=== PATIENT | male | born 1950 | race Caucasian/White ===

== ENCOUNTER 2018-06-19 08:58 | Day surgery (SDC) | payer MEDICARE ==
[2018-06-18 11:41] VITALS: BMI 25.7
[2018-06-19] MEDS ORDERED: Levofloxacin 500 mg/D5W 100 ml Premix Bag ONE (09:34)
[2018-06-19 09:50] LABS: #Basophils 0.1 thou/uL (0.0-0.2); #Eosinphils 0.3 thou/uL (0.0-0.7); #Lymphocytes 1.1 thou/uL (1.20-3.40); #Monocytes 0.5 thou/uL (0.11-0.59); %Basophils 1.2 % (0.0-1.0); %Eosinophils 4.9 % (0.0-10.0); %Lymphocytes 18.9 % (21.0-51.0); %Monocytes 8.2 % (0.0-10.0); %Neutrophils 66.8 % (42.0-75.0); Hemoglobin 14.8 g/dL (14.0-18.0); Mean Corpuscular HGB CONC 32.9 g/dL (32.0-36.0); Mean Corpuscular Hemoglobin 30.8 pg (27.0-31.0); Mean Corpuscular Volume 93.4 fL (78.0-98.0); Mean Platelet Volume 7.9 fL (7.4-10.4); Platelet Count 206 thou/uL (130-400)
[2018-06-19 09:56] LABS: Prothrombin Time 13.6 SEC (12.0-14.7)
[2018-06-19 09:57] LABS: PTT 29.2 SEC (22.9-36.1)
[2018-06-19 10:08] LABS: Anion Gap 12 mmol/L (10-20); BUN (Urea Nitrogen) 18 mg/dL (8.4-25.7); Calc. Creatinine Clearance 83 mL/min (70-130); Carbon Dioxide 28 mmol/L (23-31); Chloride 108 mmol/L (98-107); Estimated GFR-MDRD 67; Glucose 93 mg/dL (80-115); Potassium 4.8 mmol/L (3.5-5.1); Sodium 143 mmol/L (136-145)
[2018-06-19] MEDS ORDERED: Fentanyl 100 MCG/2 ML VIAL ONE (11:19)
[2018-06-19] MEDS ORDERED: Lidocaine 1% PF 5 ML VIAL ONE (12:21)
[2018-06-19] MEDS ORDERED: Ondansetron PF 4 MG/2 ML Vial ONE (12:21)
[2018-06-19] MEDS ORDERED: Glycopyrrolate 0.2 MG/ML 5 ML SYRINGE ONE (12:21)
[2018-06-19] MEDS ORDERED: Ketorolac Tromethamine 30 MG/ML VIAL ONE (12:21)
[2018-06-19] MEDS ORDERED: PROPOFOL 200 MG/20 ML VIAL ONE (12:21)
[2018-06-19] MEDS ORDERED: ePHEDrine/0.9% NaCl/PF SYRINGE 50 mg/10 ml ONE (12:21)
[2018-06-19] MEDS ORDERED: Rocuronium Bromide 10 MG/ML (10ML VIAL) ONE (12:21)
[2018-06-19] MEDS ORDERED: PHENYLEPHRINE-NS 100 MCG/ML 10 ML SYRINGE ONE (12:21)
[2018-06-19] MEDS ORDERED: Phenazopyridine HCl 97.5 MG TABLET ONE (13:20)
[2018-06-19] MEDS ORDERED: Oxybutynin 5 MG TAB ONE (13:21)
--- NOTE | 2018-06-19 19:21 | OP ---
DATE OF PROCEDURE: 06/19/2018 SERVICE: Urology. PREOPERATIVE DIAGNOSIS: Right renal stone. POSTOPERATIVE DIAGNOSIS: Right renal stone. PROCEDURES PERFORMED: Right ureteroscopy, laser lithotripsy, basket extraction of stones and placement of a 6 x 26 double-J stent. INDICATIONS FOR PROCEDURE: Mr. Suresh is a 68-year-old white male, who presented to me with bilateral renal stones. He has a greater amount of stone burden on the right. We elected to go forward with the right ureteroscopy and laser lithotripsy with removal of all stones on that side. We will defer the left side to a different date. Risks and benefits of surgery have been discussed and he has agreed to proceed forward. DESCRIPTION OF PROCEDURE: After identification of armband and verification of consent, the patient was brought back to the operating room, where he underwent general anesthesia with endotracheal intubation. He was then placed in dorsal lithotomy position and prepped and draped in usual sterile fashion. After appropriate time-out, a lubricated 22-[place] rigid cystoscope was introduced per urethra into the bladder and attention turned towards the right ureteral orifice. This was cannulated with a 0.035 Sensor wire up to the level of renal pelvis. The cystoscope was then removed and a dual-lumen catheter was advanced over the Sensor wire up to the level of the proximal ureter. An Amplatz Super Stiff wire was then placed through the second lumen of the dual lumen up to the level of renal pelvis, then dual-lumen removed. An 11/13 x 46 cm ureteral access sheath was then advanced over the Super Stiff wire up to the level of the proximal ureter. Inner cannula and Super Stiff wire were then removed leaving the outer sheath and Sensor wire in place as a safety wire. A flexible digital ureteroscope was then used to cannulate through the ureteral access sheath up into the renal pelvis. There were multiple stones found in almost every calyx. The larger stones were broken up with a 273 micron laser fiber and then all pieces that were over 1 mm in size were basketed out. Upon completion, all the stones that were over a millimeter were gone. There was some very small crumbs left within some of the calyces, which were too small to basket despite multiple attempts to render him completely stone free. These stone should pass without much difficulty as they were extremely small, so small that they cannot even be picked up in the basket. Pull-back ureteroscopy was employed and there were no additional stones found in the ureter. Satisfied that the patient was essentially stone free on this side. The ureteroscope and sheath were then removed and the cystoscope was then backloaded over the Sensor wire back into the bladder. A 6 x 26 double-J stent was advanced over the Sensor wire up to the level of the pelvis. The wire was removed leaving a good curl in renal pelvis and a good curl in the bladder. The bladder was then emptied and cystoscope removed. The patient was then awakened, taken to PACU for recovery in stable condition. COMPLICATIONS: None. ESTIMATED BLOOD LOSS: Minimal. RETAINED TUBES AND DRAINS: 6 x 26 double-J stent on the right. SPECIMEN: Stone for stone analysis. DISPOSITION: The patient will be discharged home and follow up with me in 1 week for cysto and stent removal. Job ID: [id number]
[2018-06-24 08:20] LABS: CA Oxalate Dihydrate 10 % (.); CA Oxalate Monohydrate 80 % (.); CA Phosphate 10 % (.); Color Brown (.)
== END 2018-06-19 16:38 | disposition home or self-care (01) ==
LOC: SDC 08:58
PROVIDERS: ATTEND Urology
PROC: 0TC08ZZ Extirpation of Matter from Right Kidney, Via Natural or Artificial Opening Endoscopic (ICD-10-PCS; principal; 2018-06-19)
PROC: 0T768DZ Dilation of Right Ureter with Intraluminal Device, Via Natural or Artificial Opening Endoscopic (ICD-10-PCS; 2018-06-19)
DX: N20.0 Calculus of kidney (principal); M06.9 Rheumatoid arthritis, unspecified; E29.1 Testicular hypofunction; Z79.899 Other long term (current) drug therapy; Z98.890 Other specified postprocedural states
CPT/HCPCS: 52356; 76000; 80048; 82365; 84403; 85025; 85610; 85730; 88300; 93005; C1769; 36415; 93010; J1885; J1956; J2001; J2405; J2704; J3010

== ENCOUNTER 2020-05-24 09:47 | Outpatient (CLI) | payer MEDICARE ==
--- NOTE | 2020-05-24 14:53 | CT ---
CT ABDOMEN AND PELVIS WITHOUT IV CONTRAST: 05/24/20 INDICATIONS: Renal stones. History of prior lithotripsy. Right lower quadrant pain. No comparison. FINDINGS: Lung bases clear. Liver, spleen and pancreas unremarkable. Stomach and duodenum unremarkable. Review of the kidneys show numerous small nonobstructing calculi throughout the upper collecting structures of both kidneys. These numerous calcifications are too numerous to count and measure up to 3 to 4 mm in size. No significant hydronephrosis. There is slight fullness to the right ureter. There is a 3 mm calculus in the lower right ureter which does not appear to be producing significant obstructive change. 1 cm cortical cyst mid right kidney. Urinary bladder is mildly distended. Mild urinary bladder wall thickening and mild prostatic hypertro phy. Small bowel loops normal caliber. Colon unremarkable. Aorta is mildly ectatic measuring up to 2. 3 cm in diameter in the distal abdominal aorta. Osseous structures show degenerative and postoperative changes in the spine. Degenerative changes at both hips. IMPRESSION: 1. Numerous nonobstructing calculi in the upper collecting structures of both kidneys. 2. There is a small 3 mm calculus in the lower right ureter without significant obstructive myers ge. POS: AGW
== END 2020-05-24 09:48 | disposition home or self-care (01) ==
LOC: CT 09:47
PROVIDERS: ATTEND Urology
DX: N20.2 Calculus of kidney with calculus of ureter (principal)
CPT/HCPCS: 36415; 74176; 80048; 81001; 87086

== ENCOUNTER 2020-06-13 06:41 | Outpatient (CLI) | payer MEDICARE ==
[2020-06-13 10:58] LABS: Bilirubin Neg (Negative); Blood, Urine 10 (Negative); Glucose, Urine (Dipstick) Normal (Negative); Ketone, Urine Negative (Negative); Leukocyte Negative (Negative); Nitrite Negative (Negative); Protein, Urine (Dipstick) Negative (Neg-Trace); Urobilinogen Normal mg/dL (Less than 2)
[2020-06-13 10:59] LABS: Hemoglobin 14.2 g/dL (14.0-18.0); Mean Corpuscular HGB CONC 31.6 G/DL (32.0-36.0); Mean Corpuscular Hemoglobin 28.9 PG (27.0-33.0); Mean Corpuscular Volume 91.5 fl (80.0-100.0); Mean Platelet Volume 10.6 fl (7.4-10.4); Platelet Count 234 10x3/uL (130-400); RBC Distribution Width 14.6 % (11.5-14.5); Red Blood Cell (RBC) Count 4.92 10x6/uL (4.40-5.80); White Blood Cell (WBC) Count 6.6 10x3/uL (4.5-11.0)
[2020-06-13 11:18] LABS: Anion Gap 13 mmol/L (10-20); BUN (Urea Nitrogen) 16 mg/dL (8.4-25.7); Calc. Creatinine Clearance 0 mL/min (70-130); Calcium 9.6 mg/dL (7.8-10.44); Carbon Dioxide 29 mmol/L (23-31); Chloride 105 mmol/L (98-107); Glucose 87 mg/dL (80-115); Potassium 4.8 mmol/L (3.5-5.1); Sodium 142 mmol/L (136-145)
[2020-06-13 11:22] LABS: PTT 28.5 sec (22.0-33.0)
[2020-06-13 11:23] LABS: Clarity Clear (Clear)
[2020-06-13 11:24] LABS: Bacteria/HPF Rare-Few HPF (None Seen); RBC/HPF 0-3 HPF (0-3); Squamous Epithelial 0-3 HPF (0-3); WBC/HPF 0-3 HPF (0-3)
[2020-06-14 17:15] LABS: SARS-CoV-2 PCR by NAA Not Detected (NotDetected)
--- NOTE | 2020-06-15 09:10 | EKG ---
Test Reason : PREOP Blood Pressure : / mmHG Vent. Rate : 072 BPM Atrial Rate : 072 BPM P-R Int : 176 ms QRS Dur : 096 ms QT Int : 438 ms P-R-T Axes : 048 066 046 degrees QTc Int : 479 ms Sinus rhythm with occasional Premature ventricular complexes Otherwise normal ECG No previous ECGs available Confirmed by PAPITO NICK ([id number]) on 06/15/2020 9:09:56 AM Referred By: JR Confirmed By:PAPITO NICK
== END 2020-06-13 06:42 | disposition home or self-care (01) ==
LOC: LABBT 06:41
PROVIDERS: ATTEND Urology
DX: Z01.818 Encounter for other preprocedural examination (principal); Z20.822 Contact with and (suspected) exposure to COVID-19; N20.0 Calculus of kidney; N52.2 Drug-induced erectile dysfunction; K21.9 Gastro-esophageal reflux disease without esophagitis; R53.82 Chronic fatigue, unspecified; E29.1 Testicular hypofunction
CPT/HCPCS: 80048; 81001; 85027; 85610; 85730; 87086; U0003; U0005; 87635; 93005; 93010

== ENCOUNTER 2020-06-16 08:40 | Day surgery (SDC) | payer MEDICARE ==
[2020-06-14 14:38] VITALS: BMI 27.9
[2020-06-16] MEDS ORDERED: Levofloxacin 500 mg/D5W 100 ml Premix Bag ONE (09:34)
[2020-06-16] MEDS ORDERED: Rocuronium Bromide 10 MG/ML (10ML VIAL) ONE (10:12)
[2020-06-16] MEDS ORDERED: Ondansetron PF 4 MG/2 ML Vial ONE (10:12)
[2020-06-16] MEDS ORDERED: Glycopyrrolate 0.2 MG/ML 5 ML SYRINGE ONE (10:12)
[2020-06-16] MEDS ORDERED: Lidocaine 1% PF 5 ML VIAL ONE (10:12)
[2020-06-16] MEDS ORDERED: PROPOFOL 200 MG/20 ML VIAL ONE (10:12)
[2020-06-16] MEDS ORDERED: Iothalamate Meglumine 60% 50 ML VIAL FS ONE (11:11)
[2020-06-16] MEDS ORDERED: B & O ONE (11:11)
[2020-06-16] MEDS ORDERED: Fentanyl 100 MCG/2 ML VIAL ONE (11:22)
--- NOTE | 2020-06-16 13:11 | OP ---
DATE OF PROCEDURE: 06/16/2020 SERVICE: Urology. PREOPERATIVE DIAGNOSIS: Bilateral nephrolithiasis. POSTOPERATIVE DIAGNOSES: Bilateral ureteral stones and renal stones. PROCEDURES PERFORMED: Bilateral ureteroscopy, laser lithotripsy, basket extraction of stones, placement of bilateral 6 x 26 double-J stent without strings. INDICATION FOR PROCEDURE: Mr. Suresh is a 70-year-old white male with bilateral renal calculi. I discussed bilateral ureteroscopy, laser lithotripsy, basket extraction of stones, and he agreed to proceed forward after discussion of risks and benefits. DESCRIPTION OF PROCEDURE: After identification of armband and verification of consent, the patient was brought back to the operating room, where he underwent general anesthesia with endotracheal intubation. He was then placed in dorsal lithotomy position and prepped and draped in usual sterile fashion. After appropriate time-out, a lubricated 22-[place] rigid cystoscope was introduced per urethra into the bladder. The prostate was hypertrophic with a large median lobe. Both ureters were in orthotopic location. The right ureteral orifice was cannulated with a 0.035 Sensor wire up to the level of renal pelvis. The cystoscope was then removed and a dual-lumen catheter was advanced over the Sensor wire into the mid ureter. An Amplatz Super Stiff wire was then placed over the second lumen into the ureter, into the renal pelvis and the dual-lumen removed. The Sensor wire was affixed to the drapes as a safety wire and 11/13-[place] Bard ureteral access sheath was advanced over the Super Stiff wire into the proximal ureter and then the inner cannula removed. The outer sheath was maintained in place for access. A digital ureteroscope was then passed into the renal pelvis and a full pyeloscopy was performed. There was multiple smaller stones, which were able to be basketed out without much difficulty with a 1.9-[place] Kwabena basket. Pull-back ureteroscopy then employed and there was a large stone found in the distal ureter. This was fragmented using a 273 micron laser fiber and then the fragments extracted with the Kwab[place] basket. The remainder of the pull-back ureteroscopy did not demonstrate any additional stones and there was no mucosal splitting within the ureter. The same procedure was then repeated on the left by first cannulating the ureter with a Sensor wire going up with a dual-lumen and then using the Super Stiff through the second lumen to guide the same ureteral access sheath into the proximal ureter. Digital ureteroscopy was performed and again smaller stones were noted throughout the renal pelvis. The stones were basketed out and some of the stones were lasered to fragment into extremely small dust particles, which were too small to basket. Upon final pyeloscopy, there were no additional stones over a millimeter in size within the renal pelvis. Pull-back ureteroscopy was employed and again another stone was found within the ureter on this side in the 5 to 6 mm range, which was then basketed out using the Kwabena basket. The ureteroscope and sheath were then completely removed and a stent was placed on this side by back-loading a cystoscope over the Sensor wire and then placing a 6 x 26 double-J stent over the Sensor wire into the renal pelvis and the wire removed, leaving a good curl in the kidney and a good curl in the renal pelvis. This was also done on the right side when the pull-back ureteroscopy was employed leaving bilateral stents in with both good curls in the renal pelvis and the bladder. The bladder was then emptied and the cystoscope removed. The patient had B and O suppository placed in the rectum, was then taken out of positioning, awakened, taken to PACU for recovery in stable condition. COMPLICATIONS: None. ESTIMATED BLOOD LOSS: Minimal. RETAINED TUBES AND DRAINS: 6 x 26 bilateral double-J stents. SPECIMENS: Stone for stone analysis. DISPOSITION: The patient will be discharged home and follow up with me in approximately 1 week for cystoscopy and stent removal. Job ID: [id number]
[2020-06-16] MEDS ORDERED: Promethazine HCl 25 MG/ML VIAL ONE (13:13)
[2020-06-16] MEDS ORDERED: Meperidine HCl/PF 25 MG/ML VIAL ONE (13:21)
--- NOTE | 2020-06-16 14:01 | RAD ---
Retrograde pyelogram: 06/16/2020 COMPARISON: None HISTORY: Stent placement, renal calculi FINDINGS: 14 images are provided during retrograde pyelogram. Provided imaging demonstrates placement of bilateral double-J ureteral stents. Degenerative change of bilateral hips noted. Incompletely imaged fusion hardware of the lower thoracic spine/upper lumbar spine noted. IMPRESSION: Bilateral double-J ureteral stents.
[2020-06-16] MEDS ORDERED: HYDROcodone/Acetaminophen 5/325 mg Tablet ONE (16:31)
[2020-06-16] MEDS ORDERED: Ondansetron ODT 4 MG TAB ONE (16:49)
[2020-06-23 20:08] LABS: CA Oxalate Dihydrate 20 % (.); CA Oxalate Monohydrate 80 % (.); Color Brown (.); Stone Weight 105 mg (.)
== END 2020-06-16 17:10 | disposition home or self-care (01) ==
LOC: SDC 08:40
PROVIDERS: ATTEND Urology
PROC: 0TC48ZZ Extirpation of Matter from Left Kidney Pelvis, Via Natural or Artificial Opening Endoscopic (ICD-10-PCS; principal; 2020-06-16)
PROC: 0TC38ZZ Extirpation of Matter from Right Kidney Pelvis, Via Natural or Artificial Opening Endoscopic (ICD-10-PCS; 2020-06-16)
PROC: 0T788DZ Dilation of Bilateral Ureters with Intraluminal Device, Via Natural or Artificial Opening Endoscopic (ICD-10-PCS; 2020-06-16)
DX: N20.2 Calculus of kidney with calculus of ureter (principal); N52.2 Drug-induced erectile dysfunction; R79.89 Other specified abnormal findings of blood chemistry; M06.9 Rheumatoid arthritis, unspecified; K21.9 Gastro-esophageal reflux disease without esophagitis; Z79.899 Other long term (current) drug therapy
CPT/HCPCS: 74420; 82365; 88300; J1956; J2175; J2405; J2550; J2704; J3010; Q0162

== ENCOUNTER 2020-08-28 12:13 | Outpatient (CLI) | payer MEDICARE | END 2020-08-28 12:14 | disposition home or self-care (01) | LOC: BICULT 12:13 | PROVIDERS: ATTEND Urology | DX: N20.0 Calculus of kidney (principal); R79.89 Other specified abnormal findings of blood chemistry; R53.82 Chronic fatigue, unspecified; N40.1 Benign prostatic hyperplasia with lower urinary tract symptoms; R39.12 Poor urinary stream | CPT/HCPCS: 36415; 76770; 81001; 84153; 87086 ==